=== PATIENT | male | born 1965 | race Caucasian/White ===

== ENCOUNTER 2019-11-02 08:13 | Day surgery (SDC) | payer MEDICAID ==
[~2019-11-02 08:13] MED LIST: Lactated Ringers 1,000 ML IV SCH; Sodium Chloride 0.9% 10 ML Syringe FLUSH PRN
[2019-11-02] MEDS ORDERED: Midazolam 1 MG/ML 2 ML SDV IV ONE (08:14)
[2019-11-02] MEDS ORDERED: Rocuronium 50 MG/5 ML Vial IV ONE (08:14)
[2019-11-02] MEDS ORDERED: Succinylcholine 200 MG/10 ML MDV IV ONE (08:14)
[2019-11-02] MEDS ORDERED: Ketorolac 30 MG/ML SDV IVPUSH ONE (08:14)
[2019-11-02] MEDS ORDERED: Glycopyrrolate 0.2 MG/ML 5 ML MDV IV ONE (08:14)
[2019-11-02] MEDS ORDERED: Dexmedetomidine 200 MCG/2 ML SDV IV ONE (08:14)
[2019-11-02] MEDS ORDERED: Ondansetron 4 MG/2 ML SDV IVPUSH ONE (08:14)
[2019-11-02] MEDS ORDERED: Propofol 200 MG/20 ML SDV IV ONE (08:14)
[2019-11-02] MEDS ORDERED: fentaNYL 100 MCG/2 ML SDV IV ONE (08:14)
[2019-11-02] MEDS ORDERED: Neostigmine Methylsulfate 10 MG/10 ML MDV IVPUSH ONE (08:14)
[2019-11-02] MEDS ORDERED: Dexamethasone 4 MG/ML 5 ML MDV IVPUSH ONE (08:14)
[2019-11-02] MEDS ORDERED: diphenhydrAMINE 50 MG/ML SDV IVPUSH ONE (08:14)
[2019-11-02] MEDS ORDERED: ceFAZolin 2 GM in Premix Bag 1 BAG IV ONE (09:30)
[2019-11-02] MEDS ORDERED: Bupivacaine 0.5% 30 ML SDV INJECT ONE (10:10)
[2019-11-02] MEDS ORDERED: Lidocaine 1% with EPINEPHrine 1:100,000 20 ML MDV INJECT ONE (10:10)
[2019-11-02] MEDS ORDERED: Acetaminophen/HYDROcodone 325-5 MG Tab PO PRN (10:31)
--- NOTE | 2019-11-02 10:38 | PCM.OPNOTE ---
- General Post-Op/Procedure Note Date of Surgery/Procedure: 11/02/19 Operative Procedure(s): umbilical hernia repair Findings: 1 cm defect with incarcerated preperitoneal fat Pre Op Diagnosis: umbilical hernia without obstruction or gangrene Post-Op Diagnosis: Same Anesthesia Technique: General ET Tube, Local (5 ml 1 % lido with epi/0.5% buvipicaine) Primary Surgeon: Pablo Tee Anesthesia Provider: Deya Johnson Pathology: none sent EBL in mLs: 1 Complications: None Condition: Good Free Text/Narrative:: see dictation [id number]
--- NOTE | 2019-11-03 11:34 | OR ---
DATE OF OPERATION: 11/02/2019 SURGEON: Pablo Tee MD PROCEDURE PERFORMED: Umbilical hernia repair. PREOPERATIVE DIAGNOSIS: Umbilical hernia without obstruction or gangrene. POSTOPERATIVE DIAGNOSIS: Umbilical hernia without obstruction or gangrene. INDICATIONS FOR PROCEDURE: This is a 54-year-old white male who presents with a small umbilical hernia which is tender, not reducible. He was offered and accepted repair. DESCRIPTION OF PROCEDURE: After an excellent general anesthetic was administered, the patient was prepped and draped in usual sterile manner. A grand total of 5 mL of 1:1 mixture of 1% lidocaine with epinephrine and 0.5% bupivacaine was used to infiltrate the planned incision site as well as to create a field block around the umbilicus. A curvilinear incision was then made at the base of the umbilicus, and sharp and blunt dissection was then carried out to dissect the hernia sac free from the surrounding tissue. The hernia sac was then carefully dissected from the underlying umbilicus and entered. The defect itself was extremely small, roughly about 1 cm in length. The hernia sac was transected at the base of the hernia and then the small piece of incarcerated preperitoneal fat was also transected using electrocautery. The defect was repaired with interrupted 0 Ethibond. The area was irrigated. The umbilicus was then tacked to the anterior abdominal wall with a [id number] 0 Vicryl and the skin was closed with a running subcu 4-0 Vicryl. Steri-Strips were applied. Needle, sponge, and instrument counts were reported as correct. The patient was taken to recovery room in good condition. /[id number] /MODL
== END 2019-11-02 12:20 | disposition home or self-care (01) ==
LOC: FB.SDS 08:13
PROVIDERS: ATTEND Surgery
DX: K42.0 Umbilical hernia with obstruction, without gangrene (principal); E66.9 Obesity, unspecified; Z68.32 Body mass index [BMI] 32.0-32.9, adult
CPT/HCPCS: 00750; 49587; J0330; J0690; J1100; J1200; J1885; J2250; J2405; J2704; J2710; J3010; J3490; J7120

== ENCOUNTER 2019-12-09 20:24 | Emergency (ER) | payer MEDICAID ==
[2019-12-09] MEDS ORDERED: predniSONE 20 MG Tab PO ONE (20:25)
--- NOTE | 2019-12-09 20:42 | EDM.PDOC ---
ED HPI GENERAL MEDICAL PROBLEM - General Chief Complaint: Bite:Animal, Insect Stated Complaint: swallowed bee Time Seen by Provider: 12/09/19 20:30 Source of Information: Reports: Patient History Limitations: Reports: No Limitations - History of Present Illness INITIAL COMMENTS - FREE TEXT/NARRATIVE: Patient presnted to the ED because of a bee sting. He was apparently drinking a power drink, opened his mouth widely and a bee went into his mouth and bit his uvula. Denies any dyspnea or any choking sensation. throat Pain Score (Numeric/FACES): 4 - Related Data Allergies Allergy/AdvReac Type Severity Reaction Status Date / Time No Known Allergies Allergy Verified 12/09/19 21:11 Home Meds: Home Meds NK [No Known Home Meds] 12/09/19 [History] Past Medical History HEENT History: Reports: Cataract, Impaired Vision, Other (See Below) Other HEENT History: UVEITIS Cardiovascular History: Reports: Hypertension Respiratory History: Reports: None Genitourinary History: Reports: None Musculoskeletal History: Reports: Other (See Below) Other Musculoskeletal History: RIGHT KNEE PAIN. MEDIAL EPICONDYLITIS OF ELBOW Neurological History: Reports: None Psychiatric History: Reports: None Endocrine/Metabolic History: Reports: Obesity/BMI 30+ Hematologic History: Reports: None Immunologic History: Reports: None Oncologic (Cancer) History: Reports: None Dermatologic History: Reports: None - Past Surgical History Head Surgeries/Procedures: Reports: None HEENT Surgical History: Reports: Cataract Surgery, Eye Surgery Cardiovascular Surgical History: Reports: None Respiratory Surgical History: Reports: None GI Surgical History: Reports: Appendectomy Male Surgical History: Reports: None Endocrine Surgical History: Reports: None Neurological Surgical History: Reports: None Musculoskeletal Surgical History: Reports: None Oncologic Surgical History: Reports: None Dermatological Surgical History: Reports: None Social & Family History - Caffeine Use Caffeine Use: Reports: Coffee ED ROS GENERAL - Review of Systems Review Of Systems: See Below Constitutional: Reports: No Symptoms HEENT: Reports: Other (pain on swallowing) Respiratory: Reports: No Symptoms Cardiovascular: Reports: No Symptoms Endocrine: Reports: No Symptoms GI/Abdominal: Reports: No Symptoms : Reports: No Symptoms Musculoskeletal: Reports: No Symptoms Skin: Reports: No Symptoms Neurological: Reports: No Symptoms Psychiatric: Reports: No Symptoms Hematologic/Lymphatic: Reports: No Symptoms ED EXAM, ANIMAL BITE - Physical Exam Exam: See Below Exam Limited By: No Limitations General Appearance: Alert, No Apparent Distress Ears: Normal External Exam, Normal Canal Nose: Normal Inspection, Normal Mucosa Throat/Mouth: Normal Inspection, Normal Lips Head: Atraumatic, Normocephalic Neck: Normal Inspection, Supple, Non-Tender, Full Range of Motion Respiratory/Chest: No Respiratory Distress, Lungs Clear, Normal Breath Sounds Cardiovascular: Normal Peripheral Pulses, Regular Rate, Rhythm, No Edema, No Gallop GI/Abdominal: Normal Bowel Sounds, Soft, Non-Tender, No Organomegaly Back Exam: Normal Inspection, Full Range of Motion Extremities: Normal Inspection, Normal Range of Motion, Non-Tender Neurological: Alert, Oriented, CN II-XII Intact, Normal Cognition, Normal Gait Course - Vital Signs Text/Narrative:: prednisone 20 mg po x1 Last Recorded V/S: Last Vital Signs Temp 36.6 C 12/09/19 20:24 Pulse 90 12/09/19 20:40 Resp 20 12/09/19 20:40 BP 155/89 H 12/09/19 20:40 Pulse Ox 98 12/09/19 20:40 Departure - Departure Time of Disposition: 20:40 Disposition: Home, Self-Care 01 Condition: Good Clinical Impression: Bee sting - Discharge Information Instructions: Bee, Wasp, or Hornet Sting, Adult Referrals: David Kruse MD [Primary Care Provider] - Forms: ED Department Discharge Additional Instructions: please read discharge instructions on bee sting drink ice water take prednisone 20 mg, take 2 tablets daily for 3 days follow up as needed Sepsis Event Note (ED) - Focused Exam Vital Signs: Vital Signs Temp Pulse Resp BP Pulse Ox 12/09/19 20:40 90 20 155/89 H 98 12/09/19 20:24 36.6 C 87 18 142/96 H 98
== END 2019-12-09 21:30 | disposition home or self-care (01) ==
LOC: FB.ED 20:24
DX: T63.441A Toxic effect of venom of bees, accidental (unintentional), initial encounter (principal); I10 Essential (primary) hypertension; E66.9 Obesity, unspecified; Z68.31 Body mass index [BMI] 31.0-31.9, adult
CPT/HCPCS: 99282; 99283; J7512